=== PATIENT | male | born 1980 | race African-American/Black ===

== ENCOUNTER 2017-05-13 03:49 | Inpatient (IN) | payer OTHER ==
[~2017-05-13] VITALS: Ht 190.5 cm; Wt 113.4 kg
[~2017-05-13 03:49] MED LIST: COUGH SYRU100 MG/5 M PO
[2017-05-13 03:51] VITALS: BP 142/124
[2017-05-13 04:13] LABS: ABSOLUTE NEUTROPHILS 2.1 thou/uL (1.4-8.2); BASOPHILS 0.9 % (0.0-2.0); EOSINOPHILS 2.3 % (0.0-3.0); HEMATOCRIT 45.5 % (42.0-52.0); HEMOGLOBIN 15.4 gm/dL (14.0-18.0); LYMPHOCYTES 45.8 % (24.0-44.0); MCH 30.7 pg (26.0-34.0); MCHC 33.8 g/dL (28.0-37.0); MCV 91.1 fL (80.0-100.0); MONOCYTES 11.9 % (1.0-8.0); PLATELET COUNT 237 thou/uL (150-400); POLYS 39.1 % (36.0-66.0); RBC 4.99 mil/uL (4.50-6.00); WBC 5.5 thou/uL (4.0-11.0)
[2017-05-13 04:27] LABS: CALCIUM 9.8 mg/dL (8.5-10.1); CREATININE 1.1 mg/dL (0.7-1.3); POTASSIUM 3.3 mmol/L (3.5-5.1)
[2017-05-13 04:28] LABS: ALBUMIN 3.9 g/dL (3.4-5.0); TOTAL BILIRUBIN 0.3 mg/dL (<0.1-1.0); TOTAL PROTEIN 7.6 g/dL (6.4-8.2)
[2017-05-13 05:38] LABS: URINE BILIRUBIN NEGATIVE (Negative); URINE BLOOD 3+ (Negative); URINE CLARITY CLOUDY; URINE COLOR YELLOW; URINE GLUCOSE-RANDOM* NEGATIVE (Negative); URINE KETONES 1+ (Negative); URINE LEUKOCYTES-REFLEX NEGATIVE (Negative); URINE NITRITE-REFLEX NEGATIVE (Negative); URINE PROTEIN (DIPSTICK) TRACE (Negative); URINE SPECIFIC GRAVITY 1.025 (1.005-1.035); URINE UROBILINOGEN 0.2 E.U./dl (0.2-1.0)
[2017-05-13 05:54] LABS: AMORPHOUS PHOSPHATES Many /LPF (None Seen); BACTERIA-REFLEX 1-9 Few /HPF (None Seen); CASTS None Seen /LPF (None Seen); CRYSTALS None Seen /LPF (None Seen); MUCUS None Seen strn/LPF (None Seen); SQUAMOUS None Seen /LPF (0-3); URINE WBC-REFLEX None Seen /HPF (0-5)
[2017-05-13 13:23] VITALS: BP 141/94
[2017-05-13] MEDS ORDERED: HYDROCODONE-AP1 EAC6 PO (16:19)
[2017-05-13] MEDS ORDERED: ZOFRAN ODT4 MG PO (16:21)
[2017-05-13] MEDS ORDERED: FLOMAX0.4 MG PO (16:21)
[2017-05-13 16:49] VITALS: BP 148/107
== END 2017-05-13 17:23 | disposition home or self-care (01) | DRG 694 ==
LOC: ER 03:49 → EROBS 06:16
PROVIDERS: Emergency Medicine
DX: N20.2 Calculus of kidney with calculus of ureter (principal); I10 Essential (primary) hypertension; F17.210 Nicotine dependence, cigarettes, uncomplicated; F12.10 Cannabis abuse, uncomplicated; Z71.6 Tobacco abuse counseling; Z71.51 Drug abuse counseling and surveillance of drug abuser

== ENCOUNTER 2017-07-13 13:01 | Emergency (ER) | payer OTHER ==
[~2017-07-13] VITALS: Ht 188 cm; Wt 100.7 kg
[~2017-07-13 13:01] MED LIST changes: +FLOMAX0.4 MG PO; +HYDROCODONE-AP1 EAC6 PO; +ZOFRAN ODT4 MG PO
[2017-07-13] MEDS ORDERED: HYDROCODONE-AP1 EAC6 PO (14:16)
[2017-07-13] MEDS ORDERED: KEFLEX500 M1 PO (14:16)
== END 2017-07-13 14:54 | disposition home or self-care (01) ==
LOC: ER 13:01
DX: S61.213A Laceration without foreign body of left middle finger without damage to nail, initial encounter (principal); F17.210 Nicotine dependence, cigarettes, uncomplicated; F10.99 Alcohol use, unspecified with unspecified alcohol-induced disorder; Z23 Encounter for immunization; W26.8XXA Contact with other sharp object(s), not elsewhere classified, initial encounter; Y93.89 Activity, other specified; Y92.89 Other specified places as the place of occurrence of the external cause; Y99.0 Civilian activity done for income or pay